=== PATIENT | male | born 1950 | race Caucasian/White ===

== ENCOUNTER 2017-07-20 23:34 | Inpatient (IN) | payer OTHER ==
--- NOTE | 2017-07-20 23:44 | CPEKG ---
Heart Rate: 51 RR Interval: 1176 P-R Interval: 176 QRSD Interval: 94 QT Interval: 512 QTC Interval: 472 P Cheraw: 70 QRS Cheraw: 4 T Wave Cheraw: 6 EKG Severity - NORMAL ECG - EKG Impression: SINUS RHYTHM Electronically Signed By: William Thomas 21-Jul-2017 06:45:04
[2017-07-21] MEDS ORDERED: MAG HYDROX/AL HYDROX/SIMETH 30 ML UDCUP PO ONE (00:09)
[2017-07-21] MEDS ORDERED: LIDOCAINE 2% VISCOUS 15 ML UDCUP PO ONE (00:09)
--- NOTE | 2017-07-21 00:10 | EDPHY ---
H & P Stated Complaint: Epigastric pain x1 hour, N/V/diaphoresis Time Seen by Provider: 07/20/17 23:57 HPI/ROS: Chief Complaint: Chest pain HPI: 66-year-old male was in bed when he developed upper abdominal lower chest pain about 1 hour ago. Does not have a history of the same. Is described as a pressure. At worst is an 8/10. He was given aspirin, morphine, and nitroglycerin by EMS with no relief. He has a history of atrial fibrillation with cardiac ablation I year ago. No issues since that time. His last stress test was over a year ago. Does have a strong family history of coronary artery disease. No fevers or chills. No recent injuries. No shortness of breath. ROS: 10 point Review of Systems is negative except as noted in the HPI. PMH: No fibrillation, status post ablation, depression, hypothyroidism Medications: Aspirin, Synthroid, Zocor, Zoloft, atorvastatin, warfarin Allergies: No known drug allergies Social History: No smoking, daily alcohol, no recreational drug use Family History: Father of an NH at 63, mother of renal cancer Physical Exam: Gen: Awake, Alert, No Distress HEENT: Nose: no rhinorrhea Eyes: PERRLA, EOMI Mouth: Moist mucosa Neck: Supple, no JVD Chest: nontender, lungs clear to auscultation Heart: S1, S2 normal, no murmur Abd: Soft, he has epigastric tenderness to palpation reproducing presenting complaint, no lower abdominal tenderness, no right upper quadrant tenderness, no guarding Back: no CVA tenderness, no midline tenderness Ext: no edema, non-tender Skin: no rash Neuro: CN II-XII intact, Sensation grossly intact, Strength 5/5 in bilateral upper and lower extremities - Personal History Current Tetanus/Diphtheria Vaccine: Unsure Current Tetanus Diphtheria and Acellular Pertussis (TDAP): Unsure - Medical/Surgical History Hx Asthma: No Hx Chronic Respiratory Disease: No Hx Diabetes: No Hx Cardiac Disease: Yes Hx Renal Disease: No Hx Cirrhosis: No Hx Alcoholism: Yes Hx HIV/AIDS: No Hx Splenectomy or Spleen Trauma: No Other PMH: A fib, cardiac ablasion 05/2016, - Social History Smoking Status: Current every day smoker Constitutional: Initial Vital Signs Temperature (C) 35.6 C L 07/20/17 23:39 Heart Rate 53 L 07/20/17 23:39 Respiratory Rate 18 07/20/17 23:39 Blood Pressure 120/68 07/20/17 23:39 O2 Sat (%) 94 07/20/17 23:39 O2 Delivery Mode Room Air Allergies/Adverse Reactions: No Known Allergies Allergy (Verified 12/24/11 10:22) Home Medications: Medication Instructions Recorded Levothyroxine [Levothroid, 112 mcg PO DAILY@1000 12/30/09 Synthroid] Metoprolol Tartrate [metoPROLOL 25 mg PO DAILY 12/30/09 TARTRATE] Sertraline HCl [Zoloft] 50 mg PO DAILY 12/30/09 Simvastatin [Zocor] 80 mg PO DAILY18 12/30/09 Warfarin Sodium [Coumadin] 5 mg PO DAILY16 12/30/09 Zolpidem Tartrate [Zolpidem] 1 tab PO HS 12/30/09 Multaq 02/12/10 ASPIRIN 07/20/17 Atorvastatin Calcium 07/20/17 Medical Decision Making - Diagnostics EKG Interpretation: ECG time rhythm with a rate of 51, normal axis, normal intervals, no acute ST or T-wave changes. Impression: Normal ECG. Imaging Results: CT scan of the abdomen pelvis shows a mildly distended stomach, otherwise no acute intra-abdominal findings per Dr. Cooley. Imaging: Discussed imaging studies w/ call circuit worker Radiologist ED Course/Re-evaluation: 66-year-old male presenting with chest pressure with some mild epigastric tenderness. He has not had any significant relief with aspirin, nitroglycerin or morphine. Will try GI cocktail here and reassess. ECG shows no acute findings. Patient has had no relief after GI cocktail. I have ordered Dilaudid 0.5 mg IV. Chest x-ray is unremarkable. Blood work including troponin were unremarkable. Given his epigastric tenderness in his complaints will perform CT to rule out a abdominal aortic process. Patient has had some relief with the Dilaudid. Abdominal CT is not showing any acute concerning pathology. Given the patient's age and risk factors and description of his pain he will be admitted to the Internal Medicine service for cardiac rule out further evaluation. Case has been discussed with Dr. Fitch - Data Points Laboratory Results: Laboratory Results 07/20/17 23:35 07/20/17 23:35 07/20/17 07/20/17 23:35 23:35 WBC 8.42 10^3/uL 10^3/uL (3.80-9.50) RBC 4.89 10^6/uL 10^6/uL (4.40-6.38) Hgb 15.7 g/dL g/dL (13.7-17.5) Hct 45.8 % % (40.0-51.0) MCV 93.7 fL fL (81.5-99.8) MCH 32.1 pg pg (27.9-34.1) MCHC 34.3 g/dL g/dL (32.4-36.7) RDW 13.3 % % (11.5-15.2) Plt Count 205 10^3/uL 10^3/uL (150-400) MPV 10.7 fL fL (8.7-11.7) Neut % (Auto) 55.1 % % (39.3-74.2) Lymph % (Auto) 26.4 % % (15.0-45.0) Granite % (Auto) 10.3 % % (4.5-13.0) Eos % (Auto) 6.8 % % (0.6-7.6) Baso % (Auto) 1.0 % % (0.3-1.7) Nucleat RBC Rel Count 0.0 % % (0.0-0.2) Absolute Neuts (auto) 4.65 10^3/uL 10^3/uL (1.70-6.50) Absolute Lymphs (auto) 2.22 10^3/uL 10^3/uL (1.00-3.00) Absolute Monos (auto) 0.87 10^3/uL H 10^3/uL (0.30-0.80) Absolute Eos (auto) 0.57 10^3/uL H 10^3/uL (0.03-0.40) Absolute Basos (auto) 0.08 10^3/uL 10^3/uL (0.02-0.10) Absolute Nucleated RBC 0.00 10^3/uL 10^3/uL (0-0.01) Immature Gran % 0.4 % % (0.0-1.1) Immature Gran # 0.03 10^3/uL 10^3/uL (0.00-0.10) Sodium 137 mEq/L mEq/L (134-144) Potassium 3.5 mEq/L mEq/L (3.5-5.2) Chloride 99 mEq/L mEq/L (97-110) Carbon Dioxide 25 mEq/l mEq/l (22-31) Anion Gap 13 mEq/L mEq/L (8-16) BUN 24 mg/dL H mg/dL (7-23) Creatinine 0.8 mg/dL mg/dL (0.7-1.3) Estimated GFR > 60 Glucose 83 mg/dL mg/dL (70-100) Calcium 9.9 mg/dL mg/dL (8.5-10.4) Total Bilirubin 0.7 mg/dL mg/dL (0.1-1.4) Conjugated Bilirubin 0.3 mg/dL mg/dL (0.0-0.5) Unconjugated Bilirubin 0.4 mg/dL mg/dL (0.0-1.1) AST 105 IU/L H IU/L (17-59) ALT 68 IU/L IU/L (21-72) Alkaline Phosphatase 165 IU/L H IU/L (38-126) Troponin I 0.015 ng/mL ng/mL (0.000-0.034) Total Protein 7.3 g/dL g/dL (6.3-8.2) Albumin 4.0 g/dL g/dL (3.5-5.0) Lipase 188 IU/L IU/L (23-300) Medications Given: Morphine Sulfate (Morphine) 1 - 2 mg IVP Q1HR PRN PRN Reason: Pain, Severe Unable to Take PO Stop: 07/31/17 04:19 Last Admin: 07/21/17 04:42 Dose: 2 mg Discontinued Medications Al Hydroxide/Mg Hydroxide (Maalox Susp) 30 ml PO ONCE ONE Stop: 07/21/17 00:10 Last Admin: 07/21/17 00:17 Dose: 30 ml Hydromorphone HCl (Dilaudid) 0.5 mg IVP EDNOW ONE Stop: 07/21/17 00:39 Last Admin: 07/21/17 00:42 Dose: 0.5 mg Lidocaine (Lidocaine 2% Viscous) 15 ml PO ONCE ONE Stop: 07/21/17 00:10 Last Admin: 07/21/17 00:17 Dose: 15 ml Departure - Departure Disposition: [facility] Inpatient Acute Clinical Impression: Chest pain Condition: Fair
[2017-07-21 00:35] LABS: % IMMATURE GRANULYOCYTES 0.4 % (0.0-1.1); ABSOLUTE IMMATURE GRANULOCYTES 0.03 10^3/uL (0.00-0.10); ADD DIFF? NO; ADD MORPH? NO; ADD SCAN? NO; ATYPICAL LYMPHOCYTE FLAG 0 (0-99); FRAGMENT RBC FLAG 0 (0-99); HEMATOCRIT 45.8 % (40.0-51.0); HEMOGLOBIN 15.7 g/dL (13.7-17.5); LEFT SHIFT FLG 0 (0-99); LIPEMIA HEMOLYSIS FLAG 90 (0-99); MEAN CELL HEMOGLOBIN 32.1 pg (27.9-34.1); MEAN CELL HEMOGLOBIN CONCENTR. 34.3 g/dL (32.4-36.7); MEAN CELL VOLUME 93.7 fL (81.5-99.8); MEAN PLATELET VOLUME 10.7 fL (8.7-11.7); PLATELET CLUMPS FLAG 10 (0-99); PLATELET COUNT 205 10^3/uL (150-400); RED BLOOD CELL COUNT 4.89 10^6/uL (4.40-6.38); RED CELL DISTRIBUTION WIDTH 13.3 % (11.5-15.2)
[2017-07-21] MEDS ORDERED: HYDROmorphONE/DILAUDID 1 MG/ML INJ IVP ONE (00:38)
[2017-07-21 00:49] LABS: ALANINE AMINOTRANSFERASE 68 IU/L (21-72); ALKALINE PHOSPHATASE 165 IU/L (38-126); ANION GAP 13 mEq/L (8-16); ASPARTATE AMINOTRANSFERASE 105 IU/L (17-59); BILIRUBIN,TOTAL 0.7 mg/dL (0.1-1.4); BILIRUBIN-CONJUGATED 0.3 mg/dL (0.0-0.5); BILIRUBIN-UNCONJUGATED 0.4 mg/dL (0.0-1.1); CALCIUM 9.9 mg/dL (8.5-10.4); CARBON DIOXIDE 25 mEq/l (22-31); CHLORIDE 99 mEq/L (97-110); CREATININE 0.8 mg/dL (0.7-1.3); GLOMERULAR FILTRATION RATE > 60; GLUCOSE 83 mg/dL (70-100); POTASSIUM 3.5 mEq/L (3.5-5.2); SODIUM 137 mEq/L (134-144); TOTAL PROTEIN 7.3 g/dL (6.3-8.2)
[2017-07-21 01:01] LABS: TROPONIN I 0.015 ng/mL (0.000-0.034)
[2017-07-21] MEDS ORDERED: IOPAMIDOL (ISOVUE-300) 100 ML BTL ONE ×2 (02:25→02:29)
[2017-07-21] MEDS ORDERED: ONDANSETRON DISINTEGRATING 4 MG TAB PO PRN (04:20)
[2017-07-21] MEDS ORDERED: ONDANSETRON 4 MG/2 ML VIAL IVP PRN (04:20)
[2017-07-21] MEDS ORDERED: ACETAMINOPHEN 325 MG TAB PO PRN (04:20)
--- NOTE | 2017-07-21 04:27 | PDGENHP ---
History and Physical - Chief Complaint Chest pain - History of Present Illness 66 yo M w/ hx of afib/flutter and hypothyroid presents with chest pain. Patient noticed acute onset, 810, lower sternal/upper epi-gastric pain starting around 10 PM on night of admission. Patient was in bed trying to sleep; denies exertion or emotional state. He has not had similar pain in the past and has no history of CAD. He also felt sweaty and nauseous, vomiting one time with contents that looked like dinner. He denies radiation of pain. Pain was unaffected by NTG in ED and somewhat improved by morphine, but persists. History Information - Allergies/Home Medication List Allergies/Adverse Reactions: No Known Allergies Allergy (Verified 12/24/11 10:22) Home Medications: Levothyroxine [Levothroid, Synthroid] 112 mcg PO DAILY@1000 12/30/09 [Last Taken Unknown] Metoprolol Tartrate [metoPROLOL TARTRATE] 25 mg PO DAILY 12/30/09 [Last Taken Unknown] Sertraline HCl [Zoloft] 50 mg PO DAILY 12/30/09 [Last Taken Unknown] Simvastatin [Zocor] 80 mg PO DAILY18 12/30/09 [Last Taken Unknown] Warfarin Sodium [Coumadin] 5 mg PO DAILY16 12/30/09 [Last Taken Unknown] Zolpidem Tartrate [Zolpidem] 1 tab PO HS 12/30/09 [Last Taken Unknown] Multaq 02/12/10 [Last Taken Unknown] ASPIRIN 07/20/17 [Last Taken Unknown] Atorvastatin Calcium 07/20/17 [Last Taken Unknown] I have personally reviewed and updated: family history, medical history - Past Medical History atrial fibrillation Additional medical history: Hypothyroid - Surgical History Reports: ablation - Family History Positive for: CAD - Social History Smoking Status: Never smoked Alcohol Use: Heavy (4+ beers daily) Drug Use: None Review of Systems Review of Systems: ROS: 10pt was reviewed & negative except for what was stated in HPI & below Physical Exam Physical Exam: Temp Pulse Resp BP Pulse Ox 35.6 C L 56 L 18 125/76 H 93 07/20/17 23:39 07/21/17 00:38 07/21/17 00:38 07/21/17 00:38 07/21/17 00:38 Constitutional: no apparent distress, appears nourished Eyes: PERRL, EOMI Ears, Nose, Mouth, Throat: moist mucous membranes, ears appear normal Cardiovascular: regular rate and rhythym, no murmur, rub, or gallop Respiratory: no respiratory distress, clear to auscultation Gastrointestinal: normoactive bowel sounds, soft, non-tender abdomen, distension , No tenderness, No hicks's sign, No guarding, No rebound Skin: warm, no rashes or abrasions Musculoskeletal: full muscle strength, no muscle tenderness Neurologic: AAOx3, CN II-XII Intact Psychiatric: interacting appropriately, not anxious Lab Data & Imaging Review 07/20/17 23:35 07/20/17 23:35 WBC 8.42 10^3/uL (3.80-9.50) 07/20/17 23:35 RBC 4.89 10^6/uL (4.40-6.38) 07/20/17 23:35 Hgb 15.7 g/dL (13.7-17.5) 07/20/17 23:35 Hct 45.8 % (40.0-51.0) 07/20/17 23:35 MCV 93.7 fL (81.5-99.8) 07/20/17 23:35 MCH 32.1 pg (27.9-34.1) 07/20/17 23:35 MCHC 34.3 g/dL (32.4-36.7) 07/20/17 23:35 RDW 13.3 % (11.5-15.2) 07/20/17 23:35 Plt Count 205 10^3/uL (150-400) 07/20/17 23:35 MPV 10.7 fL (8.7-11.7) 07/20/17 23:35 Neut % (Auto) 55.1 % (39.3-74.2) 07/20/17 23:35 Lymph % (Auto) 26.4 % (15.0-45.0) 07/20/17 23:35 [place]son % (Auto) 10.3 % (4.5-13.0) 07/20/17 23:35 Eos % (Auto) 6.8 % (0.6-7.6) 07/20/17 23:35 Baso % (Auto) 1.0 % (0.3-1.7) 07/20/17 23:35 Nucleat RBC Rel Count 0.0 % (0.0-0.2) 07/20/17 23:35 Absolute Neuts (auto) 4.65 10^3/uL (1.70-6.50) 07/20/17 23:35 Absolute Lymphs (auto) 2.22 10^3/uL (1.00-3.00) 07/20/17 23:35 Absolute Monos (auto) 0.87 10^3/uL (0.30-0.80) H 07/20/17 23:35 Absolute Eos (auto) 0.57 10^3/uL (0.03-0.40) H 07/20/17 23:35 Absolute Basos (auto) 0.08 10^3/uL (0.02-0.10) 07/20/17 23:35 Absolute Nucleated RBC 0.00 10^3/uL (0-0.01) 07/20/17 23:35 Immature Gran % 0.4 % (0.0-1.1) 07/20/17 23:35 Immature Gran # 0.03 10^3/uL (0.00-0.10) 07/20/17 23:35 Sodium 137 mEq/L (134-144) 07/20/17 23:35 Potassium 3.5 mEq/L (3.5-5.2) 07/20/17 23:35 Chloride 99 mEq/L (97-110) 07/20/17 23:35 Carbon Dioxide 25 mEq/l (22-31) 07/20/17 23:35 Anion Gap 13 mEq/L (8-16) 07/20/17 23:35 BUN 24 mg/dL (7-23) H 07/20/17 23:35 Creatinine 0.8 mg/dL (0.7-1.3) 07/20/17 23:35 Estimated GFR > 60 07/20/17 23:35 Glucose 83 mg/dL (70-100) 07/20/17 23:35 Calcium 9.9 mg/dL (8.5-10.4) 07/20/17 23:35 Total Bilirubin 0.7 mg/dL (0.1-1.4) 07/20/17 23:35 Conjugated Bilirubin 0.3 mg/dL (0.0-0.5) 07/20/17 23:35 Unconjugated Bilirubin 0.4 mg/dL (0.0-1.1) 07/20/17 23:35 AST 105 IU/L (17-59) H 07/20/17 23:35 ALT 68 IU/L (21-72) 07/20/17 23:35 Alkaline Phosphatase 165 IU/L (38-126) H 07/20/17 23:35 Troponin I 0.015 ng/mL (0.000-0.034) 07/20/17 23:35 Total Protein 7.3 g/dL (6.3-8.2) 07/20/17 23:35 Albumin 4.0 g/dL (3.5-5.0) 07/20/17 23:35 Lipase 188 IU/L (23-300) 07/20/17 23:35 Imaging Review: CT Abdomen without acute findings. Visualized and Interpreted Chest x-ray results: Yes Chest X-Ray results: no infiltrate Visualized and Interpreted EKG results: Yes EKG Interpretation: Positive for: normal sinsus rhythm, NS ST wave abnormalities Assessment & Plan Assessment: 66 yo M with hx afib/flutter and hypothyroid presents with chest pain. Plan: 1. Chest pain - Rather atypical from a cardiac standpoint in that pain is persistent, not associated with exertion or relieved by rest, and unaffected by NTG. However, noting age and family history, ACS is a consideration. Initial troponin and ECG without signs of ischemia. CT abdomen showed no clear acute pathology to explain symptoms. Patient on chronic AC(warfarin) for AF so doubt PE, but INR pending currently. Aortic dissection would be odd noting normal BP( and equal in both arms), but something to keep in mind as well. - Monitor on telemetry - Trend cardiac enzymes - If enzymes remain negative, will benefit form risk stratification (inpatient vs. outpatient) - If pain worsens or patient shows signs of instability, will consider CTA to eval for dissection 2. Hx afib/flutter - Patient has had 3 ablations in the past, most recently [address] Gomez at [facility]. In NSR on admission. On metoprolol, warfarin, ASA, and simva as outpatient. 3. Hypothyroid - On LTX as outpatient Diet - Clear liquids for now Code - Full Ppx - SCDs Dispo - Admit to observation for ACS rule-out
[2017-07-21 07:49] LABS: % IMMATURE GRANULYOCYTES 0.3 % (0.0-1.1); ABSOLUTE IMMATURE GRANULOCYTES 0.02 10^3/uL (0.00-0.10); ADD DIFF? NO; ADD MORPH? NO; ADD SCAN? NO; ATYPICAL LYMPHOCYTE FLAG 0 (0-99); FRAGMENT RBC FLAG 0 (0-99); HEMATOCRIT 43.4 % (40.0-51.0); HEMOGLOBIN 14.5 g/dL (13.7-17.5); LEFT SHIFT FLG 0 (0-99); LIPEMIA HEMOLYSIS FLAG 80 (0-99); MEAN CELL HEMOGLOBIN 32.2 pg (27.9-34.1); MEAN CELL HEMOGLOBIN CONCENTR. 33.4 g/dL (32.4-36.7); MEAN CELL VOLUME 96.4 fL (81.5-99.8); MEAN PLATELET VOLUME 9.7 fL (8.7-11.7); PLATELET CLUMPS FLAG 0 (0-99); PLATELET COUNT 162 10^3/uL (150-400); RED CELL DISTRIBUTION WIDTH 13.7 % (11.5-15.2)
[2017-07-21 07:58] LABS: INR 3.81 (0.83-1.16); PROTIME(PATIENT) 38.2 SEC (12.0-15.0)
[2017-07-21 08:32] LABS: ANION GAP 6 mEq/L (8-16); CALCIUM 8.7 mg/dL (8.5-10.4); CARBON DIOXIDE 28 mEq/l (22-31); CHLORIDE 99 mEq/L (97-110); CREATININE 0.8 mg/dL (0.7-1.3); GLOMERULAR FILTRATION RATE > 60; GLUCOSE 135 mg/dL (70-100); POTASSIUM 4.5 mEq/L (3.5-5.2); SODIUM 133 mEq/L (134-144)
[2017-07-21 08:43] LABS: TROPONIN I 0.025 ng/mL (0.000-0.034)
--- NOTE | 2017-07-21 08:44 | HOSPPROG ---
Hospitalist Progress Note Assessment/Plan: 66-year-old admitted with a complaint of chest pain. He has a significant history of alcohol with 4 beers per day plus vodka. He has done this for many years. There is also history of atrial fibrillation for which she is on Coumadin anticoagulation. Patient new to me today - chest pain with negative troponins and abnormal LFTs. This is possibly gallbladder disease in the right upper quadrant ultrasound along with a view of the pancreas will be obtained. - Anticoagulation on Coumadin INR is 3.8 will hold his Coumadin today. - Hyponatremia 133 will follow plan: RUQ ultrasound. Subjective: reports his chest pain is resolved there is no shortness of breath nausea vomiting or diaphoresis. Objective: Vital Signs Temp Pulse Resp BP Pulse Ox 36.6 C 56 L 14 124/82 H 91 L 07/21/17 05:48 07/21/17 05:48 07/21/17 05:48 07/21/17 05:48 07/21/17 05:48 Laboratory Results 07/21/17 07:43 07/21/17 07:43 07/20/17 07/21/17 07/22/17 05:59 05:59 05:59 Intake Total 500 Balance 500 PT 38.2 SEC (12.0-15.0) H 07/21/17 07:43 INR 3.81 (0.83-1.16) H 07/21/17 07:43 Selected Entries 07/21/17 07/21/17 07/21/17 00:38 04:35 05:48 Blood Pressure 125/76 H 126/73 H 124/82 H Laboratory Tests 07/20/17 07/21/17 07/21/17 23:35 07:43 07:43 INR 3.81 H Troponin I 0.015 Pending - Time Spent With Patient Time Spent with Patient: greater than 35 minutes Time Spent with Patient: Greater than 35 minutes spent on this patients care, greater than 50% of time spent counseling, educating, and coordinating care regarding the above mentioned plan. - Pending Discharge Pending Discharge Within 24 Hours: No Pending Discharge Within 48 Hours: Yes Pending Discharge Date: 07/23/17 Pending Discharge Time: 11:00 - Physical Exam Constitutional: no apparent distress, appears nourished Eyes: PERRL, anicteric sclera Ears, Nose, Mouth, Throat: moist mucous membranes, hearing normal Cardiovascular: systolic murmur, irregularly irregular Respiratory: no respiratory distress, no rales or rhonchi, clear to auscultation Gastrointestinal: tenderness ( Tenderness noted in the right upper quadrant without palpable or pulsatile mass no hepatosplenomegaly i noted normoactive bowel sounds) Genitourinary: no bladder fullness Skin: warm Musculoskeletal: full muscle strength Neurologic: AAOx3, CN II-XII Intact Psychiatric: interacting appropriately ICD10 Worksheet Patient Problems: Problems Problem Status Onset Chest pain Acute
[2017-07-21] MEDS ORDERED: ZOLPIDEM TARTRATE 5 MG TAB PO PRN (13:42)
--- NOTE | 2017-07-21 16:13 | ASMTCMCOM ---
CM Note CM Note Notes: 07/21/2017 Case Management Note: Reviewed chart, spoke w/RN. No therapy evals ordered. Case Management d/c poc: Home Independent when medically stable. d/ age and activity levels prior to admission. Case Management available if needs change. Date Signed: 07/21/2017 04:13 PM Electronically Signed By:Gisela Melvin
[2017-07-21] MEDS ORDERED: ASPIRIN 81 MG CHEWABLE TAB PO SCH (21:00)
[2017-07-21] MEDS ORDERED: WARFARIN SODIUM 5 MG TAB PO SCH (21:00)
[2017-07-21] MEDS: ATORVASTATIN CALCIUM 40 MG TAB PO SCH (21:23)
[2017-07-21] MEDS: METOPROLOL SUCCINATE XR 100 MG TAB PO SCH (21:23)
[2017-07-21] MEDS: LEVOTHYROXINE 125 MCG TAB PO SCH (21:23)
[2017-07-21] MEDS: SERTRALINE HCL 50 MG TAB PO SCH (21:23)
[2017-07-22 07:24] LABS: ANION GAP 4 mEq/L (8-16); CALCIUM 8.3 mg/dL (8.5-10.4); CARBON DIOXIDE 28 mEq/l (22-31); CHLORIDE 103 mEq/L (97-110); CHOLESTEROL 121 mg/dL (140-220); CHOLESTEROL/HDL RATIO 2.24 RATIO (1.00-4.97); CREATININE 0.7 mg/dL (0.7-1.3); GLOMERULAR FILTRATION RATE > 60; GLUCOSE 93 mg/dL (70-100); HIGH DENSITY LIPOPROTEIN 54 mg/dL (40-65); LDL/HDL RATIO 0.78 RATIO (1.00-3.64); LOW DENSITY LIPOPROTEIN 42 mg/dL (80-100); NON-HIGH DENSITY LIPOPROTEIN 67 mg/dL (90-129); POTASSIUM 4.8 mEq/L (3.5-5.2); SODIUM 135 mEq/L (134-144); TRIGLYCERIDE 126 mg/dL (40-150); VERY LOW DENSITY LIPOPROTEINS 25 mg/dL (8-25)
[2017-07-22 07:27] LABS: INR 3.71 (0.83-1.16); PROTIME(PATIENT) 37.4 SEC (12.0-15.0)
[2017-07-22 09:30] LABS: ALBUMIN 3.3 g/dL (3.5-5.0); BILIRUBIN,TOTAL 0.9 mg/dL (0.1-1.4); BILIRUBIN-CONJUGATED 0.4 mg/dL (0.0-0.5); BILIRUBIN-UNCONJUGATED 0.5 mg/dL (0.0-1.1); TOTAL PROTEIN 6.2 g/dL (6.3-8.2)
[2017-07-22] MEDS ORDERED: PHYTONADIONE 2.5 MG/2.5 ML ORAL UDL PO ONE (15:22)
--- NOTE | 2017-07-22 17:01 | HOSPPROG ---
Hospitalist Progress Note Assessment/Plan: 66-year-old admitted with a complaint of chest pain. He has a significant history of alcohol with 4 beers per day plus vodka. He has done this for many years. There is also history of atrial fibrillation for which she is on Coumadin anticoagulation. - chest pain with negative troponins and abnormal LFTs. This is possibly gallbladder disease -ultrasound showed cholelithiasis without cholecystitis. This is consistent with an elevated AST and alkaline phosphatase. -case discussed with Dr. Gonsales for surgery. Patient is being scheduled for cholecystectomy tomorrow. -chest x-ray shows no active disease; ECG shows no acute ischemia and is normal. INR is elevated greater than 3 in the patient will be given vitamin K 5 mg today and FFP preoperatively. -patient is medically cleared for a cholecystectomy. He is a low risk patient - Anticoagulation for proximal AFib on Coumadin INR is 3.8 will hold his Coumadin today. Patient is status post ablation stye meds 3 remotely for atrial fibrillation. He is currently in sinus rhythm. -ETOH abuse: By history drinks 4 beers a day plus vodka. His AST is slightly elevated consistent with alcohol abuse. This has been discussed with the patient is recommended that he sees or greatly decrease his alcohol use as he is causing liver inflammation and possible cirrhosis - Hyponatremia 133 will follow plan: Cholecystectomy tomorrow in late afternoon; FFP preoperatively; vitamin K tonight for an elevated INR and a recheck of INR in the a.m.. Case discussed with surgery and ultrasound was reviewed by myself and with Radiology. Subjective: Reports he is feeling well without chest pain or abdominal pain. Objective: Vital Signs Temp Pulse Resp BP Pulse Ox 36.5 C 54 L 15 114/73 93 07/22/17 11:53 07/22/17 11:53 07/22/17 11:53 07/22/17 11:53 07/22/17 11:53 Laboratory Results 07/21/17 07:43 07/22/17 06:55 07/21/17 07/22/17 07/23/17 05:59 05:59 05:59 Intake Total 500 1050 Output Total 200 650 Balance 500 850 -650 PT 37.4 SEC (12.0-15.0) H 07/22/17 06:55 INR 3.71 (0.83-1.16) H 07/22/17 06:55 - Time Spent With Patient Time Spent with Patient: greater than 35 minutes Time Spent with Patient: Greater than 35 minutes spent on this patients care, greater than 50% of time spent counseling, educating, and coordinating care regarding the above mentioned plan. - Pending Discharge Pending Discharge Within 24 Hours: No Pending Discharge Within 48 Hours: Yes Pending Discharge Date: 07/24/17 Pending Discharge Time: 11:00 - Physical Exam Constitutional: no apparent distress Eyes: PERRL, anicteric sclera Ears, Nose, Mouth, Throat: moist mucous membranes, hearing normal Cardiovascular: regular rate and rhythym, no murmur, rub, or gallop Respiratory: no respiratory distress, no rales or rhonchi, clear to auscultation Gastrointestinal: normoactive bowel sounds, soft, non-tender abdomen, no palpable masses Genitourinary: no bladder fullness Skin: warm Musculoskeletal: full muscle strength Neurologic: AAOx3, CN II-XII Intact Psychiatric: interacting appropriately ICD10 Worksheet Patient Problems: Problems Problem Status Onset Chest pain Acute
--- NOTE | 2017-07-22 17:55 | PDCONSULT ---
Lining Presser Note: Surgical consultation: Reason for consultation choledocholithiasis Requesting physician Dr. Herve Corbin Elliot is a 66-year-old gentleman who presented to the hospital with chest pain initially thought to be cardiac in origin. He has a history of multiple lesions for atrial arrhythmias with ventricular response. Last ablation last year at the [facility]. He remains on Coumadin. The patient's history of chest pain resolved with medication. Workup revealed multiple gallstones in a noninflamed gallbladder. Elevation of AST ALT and alkaline phosphatase suggest choledocholithiasis surgical consult was requested for evaluation and management of this problem. The patient has a history of alcohol use but has normal bilirubin and does not appear to be in liver failure. Past medical history: Atrial arrhythmia status post ablation, hyperlipidemia, alcohol use, depression, hypothyroidism Past surgical history: Ablation Family history: Significant for coronary artery disease Home medications: Aspirin [Aspirin 81mg (*)] 81 mg PO HS 07/21/17 [Last Taken 07/20/17 21:00] Atorvastatin Calcium [Lipitor 40 mg (*)] 80 mg PO HS 07/21/17 [Last Taken 21:00] Levothyroxine [Synthroid 125 mcg (*)] 125 mcg PO HS 07/21/17 [Last Taken 21:00] Metoprolol Succinate Xr [Toprol Xl 100 mg (*)] 100 mg PO HS 07/21/17 [Last Taken 07/20/17 21:00] Sertraline HCl [Zoloft 50mg (*)] 50 mg PO HS 07/21/17 [Last Taken 07/20/17 21:00 ] Warfarin Sodium [Coumadin 5MG (*)] 5 mg PO HS 07/21/17 [Last Taken 07/20/17] Zolpidem Tartrate [Ambien 5MG (*)] 10 mg PO HS PRN 07/21/17 [Last Taken Unknown] Allergies: No known drug allergies Social history: Positive for 4 beers daily, denies smoking or recreational drug use Review of systems: Significant for recent chest pain in the ER most likely due to choledocholithiasis/biliary colic. All others reviewed and are negative Alert oriented no distress Sclerae anicteric pupils 3 mm reactive Oropharynx moist without lesions No JVD thyromegaly trachea midline Regular rate and rhythm Clear to auscultation bilaterally Abdomen soft nontender no scars no hernias Full muscle strength range of motion Neurologically nonfocal 2+ over 2+ peripheral pulses symmetric 07/21/17 07:43 07/22/17 06:55 Total Bilirubin 0.9 mg/dL (0.1-1.4) 07/22/17 06:55 Conjugated Bilirubin 0.4 mg/dL (0.0-0.5) 07/22/17 06:55 Unconjugated Bilirubin 0.5 mg/dL (0.0-1.1) 07/22/17 06:55 AST 84 IU/L (17-59) H 07/22/17 06:55 ALT 102 IU/L (21-72) H 07/22/17 06:55 INR 3.71 Ultrasound personally reviewed on PACS demonstrates cholelithiasis no signs of acute cholecystitis Impression: Choledocholithiasis acquired anticoagulation history of atrial arrhythmia Plan: Laparoscopic cholecystectomy with intraoperative cholangiogram. The risks benefits and alternatives to surgery have been outlined clearly to the patient and his spouse. The risks include but are not limited to bleeding, infection, injury to biliary structures required additional procedures retained stone. All questions were answered. After correction of his INR proceed to surgery.
[2017-07-22] MEDS: ATORVASTATIN CALCIUM 40 MG TAB PO SCH (20:34)
[2017-07-22] MEDS: SERTRALINE HCL 50 MG TAB PO SCH (20:34)
[2017-07-22] MEDS: LEVOTHYROXINE 125 MCG TAB PO SCH (20:34)
[2017-07-22] MEDS: METOPROLOL SUCCINATE XR 100 MG TAB PO SCH (20:52)
[2017-07-23] MEDS ORDERED: PHYTONADIONE 10 MG in NS 50 ML IV ONE (04:55)
[2017-07-23 05:13] LABS: % IMMATURE GRANULYOCYTES 0.1 % (0.0-1.1); ABSOLUTE IMMATURE GRANULOCYTES 0.01 10^3/uL (0.00-0.10); ADD DIFF? NO; ADD MORPH? NO; ADD SCAN? NO; ATYPICAL LYMPHOCYTE FLAG 0 (0-99); FRAGMENT RBC FLAG 0 (0-99); HEMATOCRIT 42.2 % (40.0-51.0); HEMOGLOBIN 14.2 g/dL (13.7-17.5); INR 1.61 (0.83-1.16); LEFT SHIFT FLG 0 (0-99); LIPEMIA HEMOLYSIS FLAG 80 (0-99); MEAN CELL HEMOGLOBIN 32.7 pg (27.9-34.1); MEAN CELL HEMOGLOBIN CONCENTR. 33.6 g/dL (32.4-36.7); MEAN CELL VOLUME 97.2 fL (81.5-99.8); MEAN PLATELET VOLUME 10.5 fL (8.7-11.7); PLATELET CLUMPS FLAG 0 (0-99); PLATELET COUNT 163 10^3/uL (150-400); PROTIME(PATIENT) 19.2 SEC (12.0-15.0); RED BLOOD CELL COUNT 4.34 10^6/uL (4.40-6.38); RED CELL DISTRIBUTION WIDTH 13.7 % (11.5-15.2)
[2017-07-23 05:20] LABS: ALANINE AMINOTRANSFERASE 82 IU/L (21-72); ALBUMIN 3.3 g/dL (3.5-5.0); ALKALINE PHOSPHATASE 171 IU/L (38-126); ANION GAP 8 mEq/L (8-16); ASPARTATE AMINOTRANSFERASE 57 IU/L (17-59); BILIRUBIN,TOTAL 0.9 mg/dL (0.1-1.4); CALCIUM 8.5 mg/dL (8.5-10.4); CARBON DIOXIDE 29 mEq/l (22-31); CHLORIDE 100 mEq/L (97-110); CREATININE 0.8 mg/dL (0.7-1.3); GLOMERULAR FILTRATION RATE > 60; GLUCOSE 96 mg/dL (70-100); POTASSIUM 4.6 mEq/L (3.5-5.2); SODIUM 137 mEq/L (134-144); TOTAL PROTEIN 6.1 g/dL (6.3-8.2)
--- NOTE | 2017-07-23 08:33 | SOAPPROG ---
SOAP Progress Note Assessment/Plan: Assessment/Plan: INR 1.61 acceptable to proceed with cholecystectomy consent obtained. anticipate <24 hr post surgery in hospital 07/23/17 08:31 Objective: Vital Signs Temp Pulse Resp BP Pulse Ox 36.7 C 48 L 18 121/70 H 96 07/23/17 08:00 07/23/17 08:00 07/23/17 08:00 07/23/17 08:00 07/23/17 08:00 Laboratory Results 07/23/17 04:35 07/23/17 04:35 07/22/17 07/23/17 07/24/17 05:59 05:59 05:59 Intake Total 1050 240 Output Total 200 2010 Balance 850 -1770 PT 19.2 SEC (12.0-15.0) H D 07/23/17 04:35 INR 1.61 (0.83-1.16) H 07/23/17 04:35 ICD10 Worksheet Patient Problems: Problems Problem Status Onset Anticoagulated on warfarin Acute Chest pain Acute Choledocholithiasis with obstruction Acute
[2017-07-23] MEDS ORDERED: BUPIVACAINE 0.5% 30 ML SDV ONE (09:49)
[2017-07-23] MEDS ORDERED: IOTHALAMATE MEG (CONRAY) 50 ML VIAL IV ONE (09:53)
[2017-07-23] MEDS ORDERED: MIDAZOLAM 2 MG/2 ML VIAL ONE (10:26)
[2017-07-23] MEDS ORDERED: MIDAZOLAM 2 MG/2 ML VIAL IVP ONE (10:27)
--- NOTE | 2017-07-23 10:27 | PDANEPAE ---
ANE History of Present Illness 66 year old male presents for lap alejandro. ANE Past Medical History - Cardiovascular History Hx Arrhythmias: Yes Hx Chest Pain: No Hx Coronary Artery / Peripheral Vascular Disease: No Hx CHF / Valvular Disease: No Hx Palpitations: No Cardiovascular History Comment: Patient with history of atrial fibrillation; has had 3 cardiac ablations at [facility] previously. - Pulmonary History Hx COPD: No Hx Recent Upper Respiratory Infection: No Hx Oxygen in Use at Home: Yes O2 in Use at Home (L/minute): 3 Hx Sleep Apnea: Yes Sleep Apnea Screening Result - Last Documented: Positive - Endocrine History Hx Diabetes: No Hypothyroid: Yes Hyperthyroid: No Obesity: no - Renal History Hx Renal Disorders: No - Liver History Hx Hepatic Disorders: No - Neurological & Psychiatric Hx Neurological / Psychiatric History Comment: History of low back fusion; s/p L4- L5 & L5-S1 fusion. Previous reports of radiculopathy down to right foot. - Chronic Pain History Chronic Pain: No ANE Review of Systems Review of systems is: negative Review of Systems: - Exercise capacity Exercise capacity: >=4 METS ANE Patient History - Allergies Allergies/Adverse Reactions: No Known Allergies Allergy (Verified 12/24/11 10:22) - Home Medications Home medications: home medication list seen and reviewed Home Medications: Aspirin [Aspirin 81mg (*)] 81 mg PO HS 07/21/17 [Last Taken 07/20/17 21:00] Atorvastatin Calcium [Lipitor 40 mg (*)] 80 mg PO HS 07/21/17 [Last Taken 21:00] Levothyroxine [Synthroid 125 mcg (*)] 125 mcg PO HS 07/21/17 [Last Taken 21:00] Metoprolol Succinate Xr [Toprol Xl 100 mg (*)] 100 mg PO HS 07/21/17 [Last Taken 07/20/17 21:00] Sertraline HCl [Zoloft 50mg (*)] 50 mg PO HS 07/21/17 [Last Taken 07/20/17 21:00 ] Warfarin Sodium [Coumadin 5MG (*)] 5 mg PO HS 07/21/17 [Last Taken 07/20/17] Zolpidem Tartrate [Ambien 5MG (*)] 10 mg PO HS PRN 07/21/17 [Last Taken Unknown] - NPO status NPO Status: no food or drink >8 hours NPO Since - Liquids (Date): 07/22/17 NPO Since - Liquids (Time): 00:00 NPO Since - Solids (Date): 07/22/17 NPO Since - Solids (Time): 19:30 - Anes Hx Anes Hx: no prior problems - Smoking Hx Smoking Status: Current every day smoker - Alcohol Use Alcohol Use: Heavy (4+ beers daily) - Family Anes Hx Family Anes Hx: neg - N/A ANE Labs/Vital Signs - Labs Result Diagrams: 07/23/17 04:35 07/23/17 04:35 - Vital Signs Vital Signs: reviewed preoperatively; see RN documention for details Blood Pressure: 145/87 Heart Rate: 48 Respiratory Rate: 18 O2 Sat (%): 93 Height: 185.42 cm Weight: 93.44 kg ANE Physical Exam - Airway Neck exam: FROM Mallampati Score: Class 2 Mouth exam: normal dental/mouth exam - Pulmonary Pulmonary: no respiratory distress - Cardiovascular Cardiovascular: regular rate and rhythym - ASA Status ASA Status: III ANE Anesthesia Plan Anesthesia Plan: general endotracheal anesthesia
[2017-07-23] MEDS ORDERED: ROCURONIUM 50 MG/5 ML VIAL ONE (10:29)
[2017-07-23] MEDS ORDERED: PROPOFOL 200 MG/20 ML VIAL ONE (10:29)
[2017-07-23] MEDS ORDERED: LIDOCAINE 2% 5 ML SDV ONE (10:29)
[2017-07-23] MEDS ORDERED: fentaNYL 100 MCG/2 ML INJ ONE ×2 (10:29→12:13)
[2017-07-23] MEDS ORDERED: DEXAMETHASONE 4 MG/ML VIAL ONE (10:50)
[2017-07-23] MEDS ORDERED: NALOXONE HCL 0.4 MG/ML INJ IVP PRN (11:02)
[2017-07-23] MEDS ORDERED: HYDROCODONE/APAP 5/325 TAB PO PRN (11:07)
[2017-07-23] MEDS ORDERED: ONDANSETRON 4 MG/2 ML VIAL IVP PRN (11:07)
[2017-07-23] MEDS ORDERED: LABETALOL HCL 50 MG/10 ML SYR IVP PRN (11:07)
[2017-07-23] MEDS ORDERED: fentaNYL 100 MCG/2 ML INJ IVP PRN (11:07)
[2017-07-23] MEDS ORDERED: ONDANSETRON 4 MG/2 ML VIAL ONE (11:23)
[2017-07-23] MEDS ORDERED: SUGAMMADEX SODIUM 200 MG/2 ML VIAL IVP ONE (11:23)
[2017-07-23] MEDS ORDERED: HYDROmorphONE/DILAUDID 1 MG/ML INJ ONE (12:13)
[2017-07-23] MEDS: HYDROmorphONE/DILAUDID 1 MG/ML INJ IVP PRN ×2 (12:26→12:32)
--- NOTE | 2017-07-23 12:56 | POSTANESTH ---
Post Anesthetic Evaluation Cardiovascular Status: Normal, Stable, Similar to Pre-Op Cond Respiratory Status: Normal, Stable, Similar to Pre-op Cond. Level of Consciousness/Mental Status: Can Participate in Eval, Alert and Oriented Pain Control: Adequate, Prn Tx Ordered Nausea/Vomiting Control: Adequate, Prn Tx Ordered Complications Possibly Related to Anesthesia: None Noted
--- NOTE | 2017-07-23 13:27 | POSTOPPROG ---
Post Op Note Date of Operation: 07/23/17 Surgeon: Olaf Gonsales Estimator And Drafter: Nando DONOVAN Anesthesiologist: Herbert Moise Anesthesia: GET(General Endotracheal) Pre-op Diagnosis: Choledocholithiasis Post-op Diagnosis: same Procedure: Laparoscopic cholecystectomy with IOC Findings: normal biliary tree, fatty gallbladder Inf/Abcess present in the surg proc area at time of surgery?: No Depth: Organ Space Specimen(s): gallbladder
--- NOTE | 2017-07-23 13:55 | HOSPPROG ---
Hospitalist Progress Note Assessment/Plan: Mr Zarate is a 66 y/o male who presented with chest pain. Today is my first encounter with the patient. Chart reviewed. *Cholelithiasis s/p laparoscopic cholecystectomy/ POD #0 abnormal LFT's ultrasound confirmed cholelithiasis having some pain in abdomen/distended/ encouraged him to walk *chest pain trop neg *alcohol use/ abuse drinks 4 beers daily w vodka also, likely cause of elevated LFT no s/sx of any withdrawal during my evaluation *atrial fibrillation on OAC/ will need to be resumed when ok w Dr Taylor INR today is 1.61/he received vitamin K as well as FFP * Hyponatremia: resolved plan: encourage activity/ likely dc in a.m/ will need OAC restarted when ok with surgery. Subjective: Shaquille is c/o abominal distention and discomfort. Objective: Vital Signs Temp Pulse Resp BP Pulse Ox 36.5 C 53 L 14 127/79 H 94 07/23/17 13:13 07/23/17 13:13 07/23/17 13:13 07/23/17 13:13 07/23/17 13:13 Laboratory Results 07/23/17 04:35 07/23/17 04:35 07/22/17 07/23/17 07/24/17 05:59 05:59 05:59 Intake Total 1050 240 850 Output Total 200 2010 10 Balance 850 -1770 840 PT 19.2 SEC (12.0-15.0) H D 07/23/17 04:35 INR 1.61 (0.83-1.16) H 07/23/17 04:35 - Physical Exam Constitutional: uncomfortable Eyes: PERRL Ears, Nose, Mouth, Throat: hearing normal Cardiovascular: regular rate and rhythym Respiratory: no respiratory distress Gastrointestinal: normoactive bowel sounds, distension Skin: warm Musculoskeletal: full muscle strength Neurologic: AAOx3 Psychiatric: interacting appropriately, not anxious ICD10 Worksheet Patient Problems: Problems Problem Status Onset Anticoagulated on warfarin Acute Chest pain Acute Choledocholithiasis with obstruction Acute
--- NOTE | 2017-07-23 14:17 | GOP ---
[f rep st] OPERATIVE REPORT DATE OF OPERATION: SURGEON: Olaf Gonsales MD VEHICLE CONTROLS ENGINEER: ZION Marie. Services of first sampler are standard and required for this pro cedure. ANESTHESIOLOGIST: William Moise MD. PREOPERATIVE DIAGNOSIS: Choledocholithiasis. POSTOPERATIVE DIAGNOSIS: Choledocholithiasis. PROCEDURE PERFORMED: Laparoscopic cholecystectomy. FINDINGS: SPECIMENS: Gallbladder to permanent pathology. INDICATIONS: A 66-year-old gentleman presents with chest pain to the hospital. He is anticoagulated on Coumadin for atrial arrhythmias. He is currently awaiting laparoscopic cholecystectomy after cor rection of his INR. DESCRIPTION OF PROCEDURE: The patient was brought in the operating room after induction of endotrach eal anesthesia in supine position. His abdomen was prepped with chlorhexidine and draped sterilely. Time-out procedure was then performed according to institutional standards. Local anesthetic was in fused in the skin and subcutaneous tissues of the abdomen at the trocar sites and open supraumbilical wound trocar placement was performed. The abdomen was insufflated to 15 TOR with carbon dioxide. W orking trocars were placed in the subxiphoid and right subcostal areas under direct visualization. T he gallbladder was mobilized in the field of dissection. There was quite a bit of fat, although the bleeding did stop with some clotting. It was more than usually expected with elevated INR of 1.6. T he gallbladder was completely dissected out. The cystic duct and cystic artery were identified, the triangle of Calot. The cystic artery was triply clipped and the cystic duct was triply clipped once distally. Ductotomy was made and a cholangiocatheter was introduced through a separate stab incision to perform fluoroscopy cholangiogram. The cholangiogram demonstrated filling of the intra and extra hepatic biliary trees and there are secondary radicals. Spillage into the duodenum without any signs of filling defect. As the stone seemed to have passed, we planned on completing the cholangiogram b y moving the catheter. The gallbladder had the duct clipped twice proximally. The gallbladder was e levated off the liver bed using electrocautery. The area was inspected for hemostasis which was comp lete. However, due to his anticoagulated state, Mike was used to coat the bed of the gallbladder t o ensure adequate hemostasis. The incisions were closed at the fascial level using 0 Vicryl and skin level using 4-0 Monocryl. Dermabond was applied. The patient was awakened, extubated, and taken to the recovery room in stable condition. No immediate complications. COMPLICATIONS: There were no complications. /[id number]/MODL
[2017-07-23] MEDS: oxyCODONE IR 5 MG TAB PO PRN (15:38)
[2017-07-23] MEDS: METOPROLOL SUCCINATE XR 100 MG TAB PO SCH (20:51)
[2017-07-23] MEDS: LEVOTHYROXINE 125 MCG TAB PO SCH (20:51)
[2017-07-23] MEDS: SERTRALINE HCL 50 MG TAB PO SCH (20:52)
[2017-07-23] MEDS: ATORVASTATIN CALCIUM 40 MG TAB PO SCH (20:52)
[2017-07-24 08:23] VITALS: RESP 20
--- NOTE | 2017-07-24 09:44 | SOAPPROG ---
SOAP Progress Note Assessment/Plan: Assessment/Plan: Doing well this am Pain controlled with oxycodone. Hypoxic overnight Ambulatory in sin, tolerating regular diet RRR CTA Abd soft non distended. Incisions c/d No peripheral edema POD#1 post lap alejandro Okay for discharge to home from surgical standpoint. F/u info in discharge packet 1-2 weeks D/C per medicine. F/u with cardiology for discussion of continuation of coumadin 07/24/17 09:42 Objective: Vital Signs Temp Pulse Resp BP Pulse Ox 36.6 C 50 L 20 112/68 93 07/24/17 08:00 07/24/17 08:00 07/24/17 08:00 07/24/17 08:00 07/24/17 08:00 Laboratory Results 07/23/17 04:35 07/23/17 04:35 07/23/17 07/24/17 07/25/17 05:59 05:59 05:59 Intake Total 240 850 Output Total 2009 10 Balance -1770 840 PT 19.2 SEC (12.0-15.0) H D 07/23/17 04:35 INR 1.61 (0.83-1.16) H 07/23/17 04:35 ICD10 Worksheet Patient Problems: Problems Problem Status Onset Anticoagulated on warfarin Acute Chest pain Acute Choledocholithiasis with obstruction Acute
--- NOTE | 2017-07-24 11:13 | PDHOMEO2F ---
Home Oxygen Face to Face Home Orders: I certify that a physician or a nurse practitioner or physician's account assistant has had a [id number] encounter with this patient on the date of this order due to the diagnosis listed, which relates to the primary reason the patient requires home oxygen. Alternative treatments have been tried, or considered, and deemed ineffective. It is anticipated that supplemental oxygen will result in improvement with treatment. Home oxygen qualifying diagnosis: POST OP ATX SpO2 on room air (%): 83 Frequency of home oxygen needed: continuous Home oxygen liters per minute: 2 Home oxygen delivery device: nasal cannula Concentrator: Yes E-tanks for mobility and back up: Yes If ordering portable O2, is the patient mobile in the home?: Yes I certify that, based on these findings, the home oxygen is medically necessary for this patient for the following length of time. Length of time home oxygen needed: 1 month
[2017-07-24 12:19] VITALS: BP 114/64; PULSE 53; TEMP 98.4; O2SAT 98
[2017-07-24] MEDS: oxyCODONE IR 5 MG TAB PO PRN (12:36)
--- NOTE | 2017-07-24 17:20 | ASDISCHSUM ---
Discharge Information Plan Status:Home with No Needs Medically Cleared to Leave: Discharge Date:07/24/2017 04:02 PM CM D/C Disposition:Home, Routine, Self-Care ADT D/C Disposition:Home, Routine, Self-Care Projected Discharge Date:07/24/2017 12:00 AM Transportation at D/C:Self Discharge Delay Reason: Follow-Up Date:07/24/2017 12:00 AM Discharge Slot: Final Diagnosis: Placement Information Patient Contact Information Contact Name:KENROY Relationship: Address:[facility] [address] City:[place] Alternate Phone: [facility]/Zip Code:[place] [address] Email: Financial Information Financial Class:HMO and PPO Plans Primary Plan Desc:ARGELIA HENDERSON PPO HMO Primary Plan Number:[id number] Secondary Plan Desc: Secondary Plan Number: Assessment Information [facility] CM Progress Note CM Note CM Note Notes: 07/21/2017 Case Management Note: Reviewed chart, spoke w/RN. No therapy evals ordered. Case Management d/c poc: Home Independent when medically stable. d/ age and activity levels prior to admission. Case Management available if needs change. Date Signed: 07/21/2017 04:13 PM Electronically Signed By:Gisela Melvin RN Intervention Information
--- NOTE | 2017-07-24 22:13 | GDS ---
[f rep st] DISCHARGE SUMMARY DISCHARGE DIAGNOSES: 1. Cholelithiasis. 2. Chest pain. 3. Daily alcohol use. 4. History of atrial fibrillation. 5. Hyponatremia. 6. Acute hypoxemia. CONSULTATIONS: General Surgery. STUDIES AND PROCEDURES DONE: 1. CT of the abdomen. 2. Abdominal ultrasound. 3. Laparoscopic cholecystectomy. PHYSICAL EXAM: GENERAL: The patient is alert. VITAL SIGNS: Afebrile 36.9, pulse is 53, respirator y rate is 20, blood pressure is 114/64, he is saturating 98% on 1.5 L, 86% on room air. I have seen and evaluated the patient on the day of discharge. HOSPITAL COURSE: The patient is a 66-year-old male who presented to the emergency room with complain ts of chest pain. He was evaluated and diagnosed with: 1. Cholelithiasis. During this hospitalization, he received a laparoscopic cholecystectomy performe d by Dr. Gonsales. He has responded well to this surgical intervention. His chest pain and abdominal pain have completely resolved. He is passing gas, and he can follow up in the outpatient setting. 2. Acute hypoxemia. This is likely secondary to atelectasis and abdominal distention in the postope rative setting. The patient has good lung sounds but will continue to require supplemental oxygen at 2 L until his condition has completely resolved. Home oxygen therapy has been ordered. 3. Obstructive sleep apnea. This appears to be stable. We will continue his nocturnal oxygen requi rements. 4. Daily alcohol use. He has been educated with regard to his daily alcohol use. He has had no sig ns of withdrawal during this hospitalization. 5. History of atrial fibrillation. The patient has had an ablation in the past. He will follow up with his primary asset coordinator to determine if Coumadin therapy is recommended to be continued in the future. 6. Hyponatremia. This has resolved, and was secondary to dehydration. DISPOSITION: The patient will be discharged home independently with home oxygen. There are no pendi ng studies. DISCHARGE MEDICATIONS: Please refer to EMR form. I have provided the patient a prescription for oxy codone IR 5 mg #10. I have also re-initiated his previously prescribed home medications. He does re quire supplemental oxygen therapy at the time of disposition. FOLLOWUP: With Dr. Gonsales, as well as the patient's primary asset coordinator to receive counseling rega rding his Coumadin therapy. I spent greater than 35 minutes in the care, coordination, and management of the patient's dispositio n. /[id number]/MODL
== END 2017-07-24 16:02 | disposition home or self-care (01) | DRG 418 ==
LOC: EDUNIT# → F2W 07-21 05:19 → OBSVTOIN 07-21 17:12 → F3E 07-22 17:55
PROVIDERS: ADMIT Student in an Organized Health Care Education/Training Program; ATTEND Student in an Organized Health Care Education/Training Program
PROC: BF131ZZ Fluoroscopy of Gallbladder and Bile Ducts using Low Osmolar Contrast (ICD-10-PCS; principal; 2017-07-21)
PROC: 0FT44ZZ Resection of Gallbladder, Percutaneous Endoscopic Approach (ICD-10-PCS; principal; 2017-07-21)
DX: K80.50 Calculus of bile duct without cholangitis or cholecystitis without obstruction (principal); R79.1 Abnormal coagulation profile; T45.515A Adverse effect of anticoagulants, initial encounter; E87.1 Hypo-osmolality and hyponatremia; F10.10 Alcohol abuse, uncomplicated; R09.02 Hypoxemia; E03.9 Hypothyroidism, unspecified; Z79.01 Long term (current) use of anticoagulants; I48.91 Unspecified atrial fibrillation; G47.33 Obstructive sleep apnea (adult) (pediatric); F17.210 Nicotine dependence, cigarettes, uncomplicated
CPT/HCPCS: 96374; J1100; J1170; J2250; J2405; J2704; J3010; J3430; Q9961; Q9967

== ENCOUNTER → 2018-07-23 | Outpatient (CLI) | payer OTHER | LOC: BMCIMAGING 11:13 | PROVIDERS: ATTEND Internal Medicine Rheumatology | DX: M19.041 Primary osteoarthritis, right hand (principal); M19.042 Primary osteoarthritis, left hand ==

== ENCOUNTER 2018-11-30 11:40 | Emergency (ER) | payer OTHER ==
[2018-11-30] MEDS ORDERED: ONDANSETRON 4 MG/2 ML VIAL IVP ONE (12:05)
[2018-11-30] MEDS ORDERED: HYDROmorphONE/DILAUDID 2 MG/ML INJ IVP ONE (12:05)
--- NOTE | 2018-11-30 12:05 | EDPHY ---
H & P Time Seen by Provider: 11/30/18 11:51 HPI/ROS: CHIEF COMPLAINT: Left-sided chest and abdominal pain HISTORY OF PRESENT ILLNESS: Patient was washing the football game and was drinking more than usual since his team the [employer] was losing the game, fell once in the kitchen and landed on the wooden floor and then again upstairs in the bedroom and hit a chair and or a table according to his . He presents today with pretty severe left-sided rib back and left upper abdominal pain. Does not radiate, worse with movement or breathing, started after the fall but really noticed this morning once he was sober. REVIEW OF SYSTEMS: Eye: no change in vision ENT: no sore throat Cardiac: HPI no syncope Pulmonary: Not coughing Abdomen: No vomiting Musculoskeletal: HPI left flank pain, no neck pain Skin: No laceration or bruising Neuro: no headache Constitutional: no fever : no urinary symptoms A comprehensive 10 point review of systems is otherwise negative aside from elements mentioned in the history of present illness. PAST MEDICAL HISTORY: Includes atrial fibrillation, cardiac ablation, thyroid disease. Not anticoagulated. Social history: Alcohol last night General Appearance: Alert and conversant, cooperative. Eyes: No scleral icterus. ENT, Mouth: Normal mucous membranes. Respiratory: Splinting with decreased breath sounds on both sides left more than the right side. Tender to palpation on the left chest lateral ribs in the lower chest. Cardiovascular: Regular rate and rhythm. Gastrointestinal: Tenderness over the spleen but not over the liver. Neurological: Alert, face symmetric, normal motor and sensory in extremities. Skin: Warm and dry, no rashes. Musculoskeletal: No midline spinal tenderness. No extremity tenderness. Psychiatric: Not agitated. Emergency Department course/MDM: Dilaudid 1 mg IV, Zofran 4 mg IV. Creatinine is normal and CT scanning chest abdomen and pelvis discussed and consented. 1429: CT results reported to the patient. He feels better after IV pain meds and was able to get up and transfer to the CT rshepherd without assistance and would like to go home with symptom control which I think is reasonable. 1442: Coronary calcium noted on CT discussed with the patient and his family. He said he has been"getting notices that it is time"to have another cardiac stress test from [facility]. I warned him about the finding on CT and he will have follow-up at the [facility] regarding this once he has recovered from his injury today. Smoking Status: Former smoker Physical Exam: 119/85, 54, 18, 92%-98% RA, 36.4 Constitutional: Initial Vital Signs O2 Sat (%) 98 11/30/18 11:45 O2 Delivery Mode Room Air O2 (L/minute) 1 Allergies/Adverse Reactions: No Known Allergies Allergy (Verified 11/30/18 11:45) Home Medications: Medication Instructions Recorded Aspirin [Aspirin 81mg (*)] 81 mg PO HS 07/21/17 Atorvastatin Calcium [Lipitor 40 80 mg PO HS 07/21/17 mg (*)] Levothyroxine [Synthroid 125 mcg 125 mcg PO HS 07/21/17 (*)] Sertraline HCl [Zoloft 50mg (*)] 50 mg PO HS 07/21/17 Zolpidem Tartrate [Ambien 5MG (*)] 10 mg PO HS PRN 07/21/17 Acetaminophen [Tylenol 325mg (*)] 650 mg PO Q4HRS PRN tab 07/24/17 oxyCODONE/APAP 5/325 [Percocet] 1 tab PO Q4-6PRN PRN #11 tab 11/30/18 Medical Decision Making - Diagnostics Imaging Results: Imaging Impressions Abdomen CT 11/30/18 12:18 Impression: 1. Likely nonacute right seventh and eighth rib fractures. Correlation with the site of symptoms is recommended. 2. Triple-vessel coronary artery disease. 2. CT Scan of the Abdomen and Pelvis (dual phase extended study, with contrast) Clinical Indications: Trauma. Technique: 72 mL of Isovue 300 were given intravenously by machine power injection. Multidetector helical CT imaging was performed from the diaphragm to the symphysis pubis with images taken both during the arterial phase and then during the portal venous phase in order to do look for delayed hemorrhage. Dose reduction techniques were utilized. Findings: Abdomen: The liver and spleen are normal without evidence of laceration or subcapsular hematoma formation. Surgical clips in the gallbladder fossa are consistent with prior cholecystectomy. The pancreas, bowel and mesentery look normal. The kidneys do not show evidence for laceration, cortical contusion, or obstruction. There is no free air or free fluid. There is no evidence for arterial or venous bleeding. Pelvis: Prostatomegaly indents the urinary bladder base. There is a solitary 17 mm right superolateral bladder wall diverticulum. No free fluid in the pelvis. Bowel loops are normal. Bone window evaluation: No fracture is identified. There is sclerosis involving the upper left femoral head without evidence for articular surface flattening or hip joint effusion. There is sclerosis associated with the iliac side of both SI joints suggesting prior sacroiliitis. There is an asymmetric hypertrophic ridge involving the left posterior iliac crest, adjacent to a posterior adjacent bone defect, that are likely a bone harvesting site from prior L4-L5 posterior fusion surgery. Impression: 1. No acute posttraumatic abnormality identified. 2. 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 3. Remote sacroiliitis and L4-L5 fusion surgery. Results discussed with Dr. Tremaine Gresham at 1:51 PM. Final results are concordant with the preliminary interpretation. General information for patients regarding this examination can be found at [email or web address]. If you have questions or comments about this report, please contact me at (hospital) or [phone] (cell). Chest CT 11/30/18 12:18 Impression: 1. Likely nonacute right seventh and eighth rib fractures. Correlation with the site of symptoms is recommended. 2. Triple-vessel coronary artery disease. 2. CT Scan of the Abdomen and Pelvis (dual phase extended study, with contrast) Clinical Indications: Trauma. Technique: 72 mL of Isovue 300 were given intravenously by machine power injection. Multidetector helical CT imaging was performed from the diaphragm to the symphysis pubis with images taken both during the arterial phase and then during the portal venous phase in order to do look for delayed hemorrhage. Dose reduction techniques were utilized. Findings: Abdomen: The liver and spleen are normal without evidence of laceration or subcapsular hematoma formation. Surgical clips in the gallbladder fossa are consistent with prior cholecystectomy. The pancreas, bowel and mesentery look normal. The kidneys do not show evidence for laceration, cortical contusion, or obstruction. There is no free air or free fluid. There is no evidence for arterial or venous bleeding. Pelvis: Prostatomegaly indents the urinary bladder base. There is a solitary 17 mm right superolateral bladder wall diverticulum. No free fluid in the pelvis. Bowel loops are normal. Bone window evaluation: No fracture is identified. There is sclerosis involving the upper left femoral head without evidence for articular surface flattening or hip joint effusion. There is sclerosis associated with the iliac side of both SI joints suggesting prior sacroiliitis. There is an asymmetric hypertrophic ridge involving the left posterior iliac crest, adjacent to a posterior adjacent bone defect, that are likely a bone harvesting site from prior L4-L5 posterior fusion surgery. Impression: 1. No acute posttraumatic abnormality identified. 2. 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 3. Remote sacroiliitis and L4-L5 fusion surgery. Results discussed with Dr. Tremaine Gresham at 1:51 PM. Final results are concordant with the preliminary interpretation. General information for patients regarding this examination can be found at [employer]. If you have questions or comments about this report, please contact me at (hospital) or [phone] (cell). Lumbar Spine CT 11/30/18 12:18 Impression: Nothing acute identified. 2. CT Lumbar Spine Without Contrast, 12:49 PM History: EtOH. Fall x2. Technique: Ultrathin noncontrast helical [address] images through the lumbar spine from T12 to S1. Soft tissue and bone window evaluation is performed. Sagittal and coronal reconstructions are obtained utilizing soft tissue and bone window computer analysis modes. Dose reduction techniques were utilized. Findings: No fracture or dislocation is identified. There is solid interbody and posterior element bony fusion with dorsal decompression at L4-L5. The sacrum and coccyx are normally aligned. Impression: Nothing acute identified. Final concordant results discussed with Dr. Tremaine Gresham at 1:55 PM. General information for patients regarding this examination can be found at [employer]. If you have questions or comments about this report, please contact me at ([email or web address]) or [phone] (cell). Thoracic Spine CT 11/30/18 12:18 Impression: Nothing acute identified. 2. CT Lumbar Spine Without Contrast, 12:49 PM History: EtOH. Fall x2. Technique: Ultrathin noncontrast helical [address] images through the lumbar spine from T12 to S1. Soft tissue and bone window evaluation is performed. Sagittal and coronal reconstructions are obtained utilizing soft tissue and bone window computer analysis modes. Dose reduction techniques were utilized. Findings: No fracture or dislocation is identified. There is solid interbody and posterior element bony fusion with dorsal decompression at L4-L5. The sacrum and coccyx are normally aligned. Impression: Nothing acute identified. Final concordant results discussed with Dr. Tremaine Gresham at 1:55 PM. General information for patients regarding this examination can be found at [email or web address]. If you have questions or comments about this report, please contact me at (hospital) or [phone] (cell). - Data Points Laboratory Results: Laboratory Results 11/30/18 12:10 11/30/18 12:10 11/30/18 11/30/18 11/30/18 12:13 12:10 12:10 WBC 7.92 10^3/uL 10^3/uL (3.80-9.50) RBC 5.17 10^6/uL 10^6/uL (4.40-6.38) Hgb 16.9 g/dL g/dL (13.7-17.5) POC Hgb 18.0 gm/dL H gm/dL (13.7-17.5) Hct 48.6 % % (40.0-51.0) POC Hct 53 % H % (40-51) MCV 94.0 fL fL (81.5-99.8) MCH 32.7 pg pg (27.9-34.1) MCHC 34.8 g/dL g/dL (32.4-36.7) RDW 13.2 % % (11.5-15.2) Plt Count 225 10^3/uL 10^3/uL (150-400) MPV 9.5 fL fL (8.7-11.7) Neut % (Auto) 70.7 % % (39.3-74.2) Lymph % (Auto) 17.4 % % (15.0-45.0) [place] % (Auto) 6.9 % % (4.5-13.0) Eos % (Auto) 3.8 % % (0.6-7.6) Baso % (Auto) 0.9 % % (0.3-1.7) Nucleat RBC Rel Count 0.0 % % (0.0-0.2) Absolute Neuts (auto) 5.60 10^3/uL 10^3/uL (1.70-6.50) Absolute Lymphs (auto) 1.38 10^3/uL 10^3/uL (1.00-3.00) Absolute Monos (auto) 0.55 10^3/uL 10^3/uL (0.30-0.80) Absolute Eos (auto) 0.30 10^3/uL 10^3/uL (0.03-0.40) Absolute Basos (auto) 0.07 10^3/uL 10^3/uL (0.02-0.10) Absolute Nucleated RBC 0.00 10^3/uL 10^3/uL (0-0.01) Immature Gran % 0.3 % % (0.0-1.1) Immature Gran # 0.02 10^3/uL 10^3/uL (0.00-0.10) POC Sodium 144 mEq/L mEq/L (135-145) Sodium 137 mEq/L mEq/L (135-145) POC Potassium 4.7 mEq/L mEq/L (3.3-5.0) Potassium 5.0 mEq/L mEq/L (3.5-5.2) POC Chloride 104 mEq/L mEq/L (97-110) Chloride 108 mEq/L mEq/L (97-110) Carbon Dioxide 23 mEq/l mEq/l (22-31) Anion Gap 6 mEq/L mEq/L (6-14) POC BUN 19 mg/dL mg/dL (7-23) BUN 20 mg/dL mg/dL (7-23) Creatinine 0.8 mg/dL mg/dL (0.7-1.3) POC Creatinine 0.9 mg/dL mg/dL (0.7-1.3) Estimated GFR > 60 Glucose 111 mg/dL H mg/dL (70-100) POC Glucose 112 mg/dL H mg/dL (70-100) Calcium 9.1 mg/dL mg/dL (8.5-10.4) Medications Given: Discontinued Medications Hydromorphone HCl (Dilaudid) 1 mg IVP EDNOW ONE Stop: 11/30/18 12:06 Last Admin: 11/30/18 12:12 Dose: 1 mg Ondansetron HCl (Zofran) 4 mg IVP EDNOW ONE Stop: 11/30/18 12:06 Last Admin: 11/30/18 12:12 Dose: 4 mg Point of Care Test Results: Chemistry 11/30/18 12:13 POC Sodium 144 mEq/L mEq/L (135-145) POC Potassium 4.7 mEq/L mEq/L (3.3-5.0) POC Chloride 104 mEq/L mEq/L (97-110) POC BUN 19 mg/dL mg/dL (7-23) POC Creatinine 0.9 mg/dL mg/dL (0.7-1.3) POC Glucose 112 mg/dL H mg/dL (70-100) ISTAT H&H 11/30/18 12:13 POC Hgb 18.0 gm/dL H gm/dL (13.7-17.5) POC Hct 53 % H % (40-51) Departure - Departure Disposition: Home, Routine, Self-Care Clinical Impression: Contusion of left chest wall Qualifiers: Encounter type: initial encounter Qualified Code(s): S20.212A - Contusion of left front wall of thorax, initial encounter Condition: Good Instructions: Contusion in Adults (ED) Additional Instructions: Ice to sore areas. Please return for trouble breathing or worsening or severe pain. No alcohol if taking pain medication. Referrals: Samuel Saxena MD [place] [place] - 3-4 days, if not improved Prescriptions: oxyCODONE/APAP 5/325 [Percocet] 1 tab PO Q4-6PRN PRN #11 tab PRN Reason: Pain
[2018-11-30 12:25] LABS: PLATELET COUNT 225 10^3/uL (150-400)
[2018-11-30] MEDS ORDERED: IOPAMIDOL (ISOVUE 370) 100 ML BTL IV ONE (12:36)
[2018-11-30 14:42] VITALS: BP 104/78
== END 2018-11-30 14:40 | disposition home or self-care (01) ==
DX: S20.212A Contusion of left front wall of thorax, initial encounter (principal); I25.10 Atherosclerotic heart disease of native coronary artery without angina pectoris; W19.XXXA Unspecified fall, initial encounter; Y92.008 Other place in unspecified non-institutional (private) residence as the place of occurrence of the external cause; Y93.9 Activity, unspecified; Y99.9 Unspecified external cause status
CPT/HCPCS: 71260; 72129; 72132; 74177; 96374; 96375; 99285; J1170; J2405; Q9967; 82435-PO; 82565-PO; 82947-PO; 84132-PO; 84295-PO; 84520-PO; 85014-ER